=== PATIENT | male | born 1975 | race Caucasian/White ===

== ENCOUNTER 2018-08-14 13:10 | Outpatient (CLI) | payer SELFPAY | END 2018-08-14 14:32 | disposition home or self-care (01) | PROVIDERS: PCP Family Medicine; Visit Provider Nurse Practitioner Family | DX: Z02.4 Encounter for examination for driving license (principal) ==

== ENCOUNTER → 2019-01-05 13:09 | Outpatient (CLI) | payer OTHER, SELFPAY | PROVIDERS: PCP Nurse Practitioner Family; Visit Provider Nurse Practitioner Family | DX: G47.30 Sleep apnea, unspecified (principal); G47.10 Hypersomnia, unspecified; R51 Headache; R06.83 Snoring | CPT/HCPCS: 95806 ==

== ENCOUNTER → 2019-01-29 14:16 | Outpatient (CLI) | payer OTHER, SELFPAY | PROVIDERS: PCP Nurse Practitioner Family; Visit Provider Nurse Practitioner Family | DX: I49.9 Cardiac arrhythmia, unspecified (principal) | CPT/HCPCS: 93225; 93226 ==

== ENCOUNTER → 2019-02-12 08:11 | Outpatient (CLI) | payer OTHER, SELFPAY ==
--- NOTE | 2019-02-12 08:16 | US_ITS ---
US liver HISTORY: ITS.REASON: ELEVATED LIVER ENZYMES ORDERING PHYSICIAN: Diogo Huggins MD PATIENT AGE: 43 years COMPARISON: None FINDINGS: PANCREAS:Unremarkable. No obvious mass or abnormal fluid collection. No ductal dilatation LIVER:No focal liver lesions demonstrated. Homogeneous echogenicity. No intrahepatic biliary ductal dilatation evident. There is appropriate direction of blood flow within a nondilated portal vein RIGHT KIDNEY:Unremarkable. Normal size and echogenicity. No hydronephrosis GALLBLADDER:No gallstones, gallbladder wall thickening, pericholecystic fluid, or biliary dilatation. IMPRESSION: Unremarkable right upper quadrant/hepatic ultrasound
== END ==
PROVIDERS: PCP Family Medicine; Visit Provider Family Medicine
DX: R74.8 Abnormal levels of other serum enzymes (principal)
CPT/HCPCS: 76705

== ENCOUNTER → 2019-07-06 08:43 | Outpatient (CLI) | payer OTHER, SELFPAY ==
--- NOTE | 2019-07-06 09:10 | XR_ITS ---
PROCEDURE: XR CHEST 2V CLINICAL HISTORY: COUGH, CONGESTION Cough, congestion, shortness of air COMPARISON: No exams were available for comparison FINDINGS: The cardiomediastinal silhouette and pulmonary vascularity are within normal limits. The no lobar consolidation or collapse is evident. There are 3 nodular densities in the right mid lung 1 which is consistent with a granuloma. The other 2 could be granulomas or summation densities from vessels on-end. No lobar consolidation or collapse. No acute bony abnormalities. IMPRESSION: No acute finding. Right midlung nodular opacities which may be due to a granuloma is a may be confirmed with follow-up Dictated by: Rambo Rubalcava MD 07/06/2019 16:02 Electronically signed by Rambo Rubalcava MD in [place] 07/06/2019 16:02
== END ==
PROVIDERS: PCP Family Medicine; Visit Provider Family Medicine
DX: R09.89 Other specified symptoms and signs involving the circulatory and respiratory systems (principal); R05 Cough
CPT/HCPCS: 71046

== ENCOUNTER → 2020-02-10 09:31 | Outpatient (CLI) | payer OTHER, SELFPAY ==
[2020-02-10 11:43] LABS: Coronavirus 19 IgG Antibody Negative (Negative); Coronavirus 19 IgM Antibody Negative (Negative)
== END ==
PROVIDERS: Visit Provider Internal Medicine Gastroenterology
DX: Z01.818 Encounter for other preprocedural examination (principal)
CPT/HCPCS: 36415; 86328

== ENCOUNTER 2020-02-11 06:52 | Day surgery (SDC) | payer OTHER, SELFPAY ==
[2020-02-08 13:52] VITALS: BMI 29.8
[2020-02-11] VITALS (7 sets, daily range): BP systolic 106–137; BP diastolic 59–86; PULSE 60–89; RESP 16–18; TEMP 36.1–36.3; O2SAT 90–98
--- NOTE | 2020-02-11 07:33 | P.PN_ITS ---
[facility] Anesthesia Checklist - Patient Identification Patient Identification: Arm Band, Verbal (Name & ) - Structural Data Admitted From: Home Planned Operative Procedure/s: colon Consent for Planned Operative Procedure(s) Verified: Yes Verified Documents: History and Physical - NPO Status Verified Time NPO: 00:00 - Additional verifications Patient : No Anesthesia Reactions: No Hx Blood Transfusions: No Blood Transfusion Reaction: No Cephalosporin Allergy: No Previous Colonoscopy: No - Cardiovascular Assessment Heart Sounds: S1 & S2 Pulse Strength: Baseline Pulse Rhythm: Regular Peripheral Edema: No - Airway Assessment C-Spine Mobility Assessed: Yes TMJ Mobility Assessed: Yes Dentition: Good Dentition - Neurological Assessment Level of Consciousness: Awake, Alert, Appropriate Hx Seizures: No Numbness or tingling in extremities: No - Anesthesia Plan Anesthesia Risk discussed: Yes Anesthesia Plan: Verified ASA Class: II Anesthesia Type: MAC [facility] History I have reviewed the patient's past medical history: Yes Medical History: Reports:: Arrhythmia Denies:: Cancer, Diabetes Mellitus Type 1, Diabetes Mellitus Type 2, Internal Pacemaker, MRSA, Seizures *Have you ever received a pneumonia vaccine?: No *Have you received a flu vaccine this season?: No Anesthesia experience/problems:: none Other Surgeries: Yes: Other (orthopedic surgery right hand). No: Pacemaker Amputation: No Fractures: Yes - *Social History Educational Level: Completed College Smoking Status: Former smoker Alcohol Intake: current Alcohol Intake Frequency:: a few times a month Substance Use Type: other *Occupational Status:: employed Housing: house Household Members: spouse, family *Travel in the last 8 weeks: None Family Hx:: No significant family history
--- NOTE | 2020-02-11 08:05 | HMH.PROC ---
[facility] Procedure Note Procedure Note:: Colonoscopy Procedure Report: Colonoscopy with cold snare polypectomy and Endo Clip placement Endoscopist: Celestino Tavarez II, MD Referring physician: CYN Márquez/Sunday Hansen M.D. Date of Procedure: February 11, 2020 Equipment: Olympus 180 variable stiffness pediatric colonoscope Sedation: MAC sedation Indication: Mr. Johnson is a 44-year-old gentleman who is here for diagnostic colonoscopy secondary to a positive Cologuard. This is his first colonoscopy. He reports no abdominal pain, weight loss, change in his bowel habits or rectal bleeding. He reports no melena. He reports no family history of colon cancer. Procedure: Prior to the procedure, a history and physical exam was performed, and patient's medications and allergies were reviewed. The risks, benefits and alternatives of the sedation and procedure were discussed with the patient. All questions were answered and informed consent was obtained. The patient was brought to the procedure room. Patient identification and proposed procedure were verified by the physician and the nurse. The patient was placed in a left lateral decubitus position and the scope was passed under direct vision. Throughout the procedure, the patient's blood pressure, pulse, and oxygen saturations were monitored continuously. The colonoscopy was accomplished without difficulty. The patient tolerated the procedure well. Findings: On digital rectal examination there was normal rectal tone. There were no external hemorrhoids. The colonoscope was introduced through the anal canal to the rectum and advanced to the cecum. The ileocecal valve and appendiceal orifice were identified. The scope was advanced a short distance into the ileum which appeared grossly normal. The scope was then withdrawn into the colon. The cecum was normal. There was an ascending polyp (4 mm), transverse polyp (4 mm), sigmoid polyp (5 mm) and 2 rectosigmoid polyps (15mm and 3 mm). All of these were removed via cold snare polypectomy. The larger rectosigmoid polyp had some oozing/mild heme from the base of the polyp and this was closed with a single Endo Clip providing excellent hemostasis there were very mildly scattered diverticuli throughout the descending and sigmoid colon (LEFT colon). The rectum itself was normal. Upon retroflexion within the rectum there were grade 1-2 internal hemorrhoids. The preparation was excellent throughout with Bradley Preparation Score of grade 1-2. The cecal time was 12. Impression: 1. Rectosigmoid polyp (15 mm) 2. Diminutive colonic polyps (additionally) x4 3. Mild left-sided diverticulosis 4. Grade 1-2 internal hemorrhoids Plan: I will follow up the polyp pathology and recommend repeat colonoscopy again in 3 years based upon the polyp histology. I would encourage fiber supplementation on a long-term daily maintenance basis.
== END 2020-02-11 09:23 | disposition home or self-care (01) ==
LOC: OUTP 06:53
PROVIDERS: PCP Family Medicine; Visit Provider Internal Medicine Gastroenterology
PROC: 0DJD8ZZ Inspection of Lower Intestinal Tract, Via Natural or Artificial Opening Endoscopic (ICD-10-PCS; CPT 45378; principal; 2020-02-11 08:00)
DX: K64.0 First degree hemorrhoids (principal); K63.5 Polyp of colon; K62.1 Rectal polyp; K57.30 Diverticulosis of large intestine without perforation or abscess without bleeding; R19.5 Other fecal abnormalities; G47.33 Obstructive sleep apnea (adult) (pediatric)
CPT/HCPCS: 45385; J2704

== ENCOUNTER → 2022-12-18 12:03 | Outpatient (CLI) | payer OTHER, SELFPAY ==
--- NOTE | 2022-12-18 12:08 | XR_ITS ---
FINAL REPORT CLINICAL HISTORY: LLL pneumonia, COVID COMPARISON: 07/06/2019 FINDINGS: Two views of the chest were obtained. The heart size and pulmonary vascularity are within normal limits. The mediastinum is normal. No acute pulmonary abnormality is identified. There are multiple calcified granulomas in the right lung. There is no pneumothorax. The bony thorax is intact. IMPRESSION: No active cardiopulmonary disease. Reviewed, Interpreted and Dictated by Gavin Monet III, MD Transcribed by Carmen Correia Authenticated and [facility]
== END ==
PROVIDERS: PCP Family Medicine; Visit Provider Nurse Practitioner
DX: J18.9 Pneumonia, unspecified organism (principal)
CPT/HCPCS: 71046